=== PATIENT | female | born 1990 | race Hispanic/Latino ===

== ENCOUNTER 2020-04-09 11:26 | Emergency (ER) | payer SELFPAY ==
[~2020-04-09] VITALS: Ht 165.1 cm; Wt 63.0 kg
[2020-04-09] MEDS ORDERED: DEXAMETHASONE SOD PHOS 10 MG/1 ML VIAL IV ONE (11:45)
--- OUTSIDE RECORDS SUMMARY | 2020-04-09 12:02 | XMS REPORT | Continuity of Care Document ---
Author Author [facility] t Organization [facility] Address [address] [place] [address] Phone Unavailable Care Team Providers Care Laborer [employer] Name Role Phone Unavailable Unavailable Payers Payer Name Policy Type Policy Number Effective Date Expiration Date S ource Problems This patient has no known problems. Allergies, Adverse Reactions, Alerts Allergy Name Allergy Type Status Severity Reaction(s) Onset Date Inacti ve Date Treating Clinician Comments Source No Known Allergies DA Active U 2019-03-26 00:00:00 [facility] Medications This patient has no known medications. Procedures This patient has no known procedures. Results Test Description Test Time Test Comments Results Result Comments Source URINALYSIS COMPLETE 2019-03-26 11:31:00 Test Item UA COLOR (test code = COLU) Light-Yellow YELLOW UA APPEARANCE (test code = APPU) CLEAR CLEAR UA GLUCOSE DIPSTICK (test code = DGLUU) NEGATIVE mg/dL NEGATIVE UA BILIRUBIN DIPSTICK (test code = BILU) NEGATIVE mg/dL NEGATIVE UA KETONE DIPSTICK (test code = KETU) NEGATIVE mg/dL NEGATIVE UA SPECIFIC GRAVITY (test code = SGU) 1.025 1.001-1.035 UA BLOOD DIPSTICK (test code = KEELY) 0.03 mg/dL (Trace) mg/dL NEGATI VE A UA PH DIPSTICK (test code = TERRENCE) 5.5 5.0-8.0 UA PROTEIN DIPSTICK (test code = PROU) NEGATIVE mg/dL NEGATIVE UA UROBILINIOGEN DIPSTICK (test code = URO) Normal mg/dL NEGATIVE UA NITRITE DIPSTICK (test code = DELROY) NEGATIVE NEGATIVE UA LEUKOCYTE ESTERASE W REFLEX (test code = LEUUR) NEGATIVE Ahmet/uL NEGATIVE UA WBC (test code = WBCU) 0-5 per HPF 0-5 UA RBC (test code = RBCU) 0-2 #/HPF 0-5 UA EPITHELIAL CELLS (test code = EPIU) FEW per HPF FEW UA BACTERIA (test code = BACU) FEW #/HPF NONE A UA MUCUS (test code = MUCU) FEW #/LPF FEW Urine Source? Clean CatchUR HCG [id number] 11:31:00* Test Item Value Reference Range Interpretation Comments UR HCG QUAL (test code = HCGQLU) NEGATIVE This HCGQL test is NOT applicable for MALE patients.Check with nurse about probable order error.If Tumor Marker Test needed, nurse should order test "HCGTU"(Test #[id number]) Urine Source? Clean CatchURINALYSIS [id number] 11:30:00* Test Item Value Reference Range Interpretation Comments UA COLOR (test code = COLU) Light-Yellow YELLOW UA APPEARANCE (test code = APPU) CLEAR CLEAR UA GLUCOSE DIPSTICK (test code = DGLUU) NEGATIVE mg/dL NEGATIVE UA BILIRUBIN DIPSTICK (test code = BILU) NEGATIVE mg/dL NEGATIVE UA KETONE DIPSTICK (test code = KETU) NEGATIVE mg/dL NEGATIVE UA SPECIFIC GRAVITY (test code = SGU) 1.025 1.001-1.035 UA BLOOD DIPSTICK (test code = KEELY) 0.03 mg/dL (Trace) mg/dL NEGATI VE A UA PH DIPSTICK (test code = TERRENCE) 5.5 5.0-8.0 UA PROTEIN DIPSTICK (test code = PROU) NEGATIVE mg/dL NEGATIVE UA UROBILINIOGEN DIPSTICK (test code = URO) Normal mg/dL NEGATIVE UA NITRITE DIPSTICK (test code = DELROY) NEGATIVE NEGATIVE UA LEUKOCYTE ESTERASE W REFLEX (test code = LEUUR) NEGATIVE Ahmet/uL NEGATIVE UA WBC (test code = WBCU) 0-5 per HPF 0-5 UA RBC (test code = RBCU) 0-2 #/HPF 0-5 UA EPITHELIAL CELLS (test code = EPIU) FEW per HPF FEW UA BACTERIA (test code = BACU) FEW #/HPF NONE A UA MUCUS (test code = MUCU) FEW #/LPF FEW Urine Source? Clean CatchUR HCG [id number] 11:30:00* Test Item Value Reference Range Interpretation Comments UR HCG QUAL (test code = HCGQLU) Urine Source? Clean Catch
[2020-04-09] MEDS ORDERED: DEXAMETHASONE SOD PHOS INJ 4 MG/ML VIAL ONE (12:11)
--- NOTE | 2020-04-09 12:16 | Emergency Department Note ---
History of Present Illnes History of Present Illness Chief Complaint: Respiratory History of Present Illness This is a 29 year old female Chief Complaint Comment Reports that she was seen by a doctor 3 weeks ago for post nasal drainage and facial pain d/t her allergies, now she has increasing shortness of breath and cannot cough up anything. States that her shortness of breath is worse at night or at work in a [employer]. . Historian: Patient Arrival Mode: Car Additional Treatment CLINICAL TRIAL EDUCATOR: zyrtec and flonase Onset (how long ago): week(s) (3) Location: congestion nasal Quality: dull Radiation: Denies non-radiation, Denies back, Denies neck, Denies extremity, Denies abdomen, Denies periumbilical, Denies flank, Denies proximal, Denies distal, Denies other Severity: moderate Onset quality: gradual Timing of current episode: constant Progression: unchanged Chronicity: new Context: Denies recent illness, Denies recent surgery, Denies recent immobilization, Denies recent travel, Denies trauma/injury, Denies new medications, Denies hx of DVT/PE, Denies non-compliance w/ medications, Denies other Relieving factors: none Exacerbating factors: none Associated symptoms: Reports cough, Reports shortness of breath; Denies denies other symptoms, Denies confusion, Denies chest pain, Denies diaphoresis, Denies fever/chills, Denies headaches, Denies loss of appetite, Denies malaise, Denies rash, Denies seizure, Denies syncope, Denies weakness, Denies other Treatments prior to arrival: none Past Medical/Family History Physician Review I have reviewed the patient's past medical and family history. Any updates have been documented here. Past Medical History Recent Fever: No Clinical Suspicion of Infectio: No New/Unexplained Change in Ment: No Other Medical History: boderline diabetic bronchitis Past Surgical History: None Social History Smoking Cessation: Never Smoker Counseling Performed: No Alcohol Use: None Any Illegal Drug Use: No Physically hurt or threatened: No Other Any Pre-Existing Lines (PICC,: No Review of Systems Review of Systems Constitutional: Reports no symptoms EENTM: Reports as per HPI Cardiovascular: Reports no symptoms Respiratory: Reports no symptoms Gastrointestinal: Reports no symptoms Genitourinary: Reports no symptoms Musculoskeletal: Reports no symptoms Integumentary: Reports no symptoms Neurological: Reports no symptoms Psychological: Reports no symptoms Endocrine: Reports no symptoms Hematological/Lymphatic: Reports no symptoms Physical Exam Related Data Allergies: Coded Allergies: No Known Allergies (Unverified , 04/09/20) Triage Vital Signs Vital Signs Date Time Temp Pulse Resp B/P (MAP) Pulse Ox O2 Delivery O2 Flow Rate FiO2 04/09/20 11:34 97.3 88 16 137/75 100 Room Air Vital signs reviewed: Yes Physical Exam CONSTITUTIONAL Constitutional: Present well-developed, Present well-nourished HENT HENT: Present normocephalic, Present atraumatic, Present oropharynx clear/moist, Present nose normal HENT L/R: Present left ext ear normal, Present right ext ear normal EYES Eyes: Reports PERRL, Reports conjunctivae normal NECK Neck: Present ROM normal; Absent supple, Absent thyromegaly, Absent tracheal deviation, Absent stridor, Absent JVD, Absent cervical adenopathy, Absent carotid bruit, Absent other PULMONARY Pulmonary: Present effort normal, Present breath sounds normal; Absent respiratory distress, Absent rales, Absent rhonchi, Absent chest tenderness, Absent other CARDIOVASCULAR Cardiovascular: Present regular rhythm, Present heart sounds normal, Present capillary refill normal, Present normal rate; Absent irregular rhythm, Absent intact distal pulses, Absent tachycardia, Absent bradycardia, Absent murmur, Absent gallop, Absent friction rub, Absent palpable pulses, Absent strong pulses, Absent weak pulses, Absent LLE edema, Absent RLE edema, Absent other GASTROINTESTINAL Abdominal: Present soft, Present nontender, Present bowel sounds normal; Absent distension, Absent tender, Absent guarding, Absent mass, Absent rebound, Absent hernia, Absent left CVA tenderness, Absent right CVA tenderness, Absent other GENITOURINARY Genitourinary: Present exam deferred SKIN Skin: Present warm, Present dry MUSCULOSKELETAL Musculoskeletal: Present ROM normal NEUROLOGICAL Neurological: Present alert, Present oriented x 3, Present no gross motor or sensory deficits PSYCHOLOGICAL Psychological: Present mood/affect normal, Present judgement normal Assessment & Plan Medical Decision Making MDM bronchitis pharyngitis sinusitis Reassessment Reassessment time: 12:15 Reassessment better Assessment & Plan Final Impression: (1) Acute bronchitis (2) Acute maxillary sinusitis (3) Acute pharyngitis Depart Disposition: HOME, SELF-CARE Last Vital Signs Date Time Temp Pulse Resp B/P (MAP) Pulse Ox O2 Delivery O2 Flow Rate FiO2 04/09/20 11:34 97.3 88 16 137/75 100 Room Air Home Meds Active Scripts Azithromycin (Z-SANDRO) 250 Mg Tablet, 250 MG PO UD, #1 UDPKT Z-Pack Prov:SHASHA DE LOS SANTOS MD 04/09/20 Medications in the ED Dexamethasone Sodium Phosphate 10 mg ONCE ONCE IV ; Start 04/09/20 at 11:45; Stop 04/09/20 at 12:07; Status DC Dexamethasone Sodium Phosphate 12 mg STK-MED ONCE .ROUTE ; Start 04/09/20 at 12:11; Stop 04/09/20 at 12:06; Status DC SHASHA DE LOS SANTOS MD Apr 09, 2020 12:16
[2020-04-09] MEDS ORDERED: AZITHROMYCIN250 MG PO (12:17)
== END 2020-04-09 12:29 | disposition home or self-care (01) ==
LOC: FSED 11:50
DX: J20.9 Acute bronchitis, unspecified (principal); J02.9 Acute pharyngitis, unspecified; J01.00 Acute maxillary sinusitis, unspecified
CPT/HCPCS: 96372; 99282; J1100 ×2